=== PATIENT | female | born 1965 | race Caucasian/White ===

== ENCOUNTER → 2020-02-01 | Outpatient (CLI) | payer BC ==
--- NOTE | 2020-02-01 14:35 | RADIOLOGY REPORT (SQ) ---
EXAM DESCRIPTION: NM WHOLE BODY BONE SCAN IMAGES COMPLETED DATE/TIME: 02/01/2020 2:01 pm REASON FOR STUDY: BREAST CA WITH METS (C50.919, C79.51) C79.51 SECONDARY MALIGNANT NEOPLASM OF BONE C50.919 MALIGNANT NEOPLASM OF UNSP SITE OF UNSPECIFIED FEMAL COMPARISON: No available imaging studies for comparison. RADIONUCLIDE AND DOSE: 20.8 millicuries Tc99m HDP. The route of agent administration: Intravenous. ADDITIONAL DRUGS AND DOSES: None. TECHNIQUE: Routine delayed images at 3 hour post radionuclide injection acquired of the bony skeleto n including anterior and posterior whole-body projections and additional focused images as needed. LIMITATIONS: None. FINDINGS: BONES: Increased uptake corresponding to the T10 vertebral body. Additional uptake corres ponding to the L3 and likely L4 vertebral bodies. Small focus of uptake corresponding to the likely right occipital calvarium. Scattered additional uptake at the shoulders, knees and hips in a pattern most consistent with degenerative change. KIDNEYS: Symmetric excretion without obstruction. OTHER: No other significant finding. IMPRESSION: Abnormal uptake corresponding to the T10, L3 and likely L4 vertebral bodies. Additional uptake corresponding to the right likely occipital calvarium. Findings suspicious for additional me tastatic deposits. Traumatic injury to the spine is not entirely excluded. Correlation with thoraci c and lumbar MR could be considered for confirmation. RECOMMENDATION: Thoracic and lumbar MRI could be considered for further evaluation. COMMENT: Quality measure 147: No available prior imaging studies for comparison TECHNICAL DOCUMENTATION: JOB ID: [id number] 2010 [employer]- All Rights Reserved Reading location - IP/workstation name: [email or web address]
== END ==
LOC: RAD 09:54
PROVIDERS: ATTEND Internal Medicine Medical Oncology
DX: C79.51 Secondary malignant neoplasm of bone (principal); C50.919 Malignant neoplasm of unspecified site of unspecified female breast
CPT/HCPCS: 78306; A9561; Q9969

== ENCOUNTER → 2020-07-18 | Outpatient (CLI) | payer BC ==
--- NOTE | 2020-07-18 11:15 | RADIOLOGY REPORT (SQ) ---
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 TECHNIQUE: CT scan of the chest performed using helical scanning technique with dynamic intravenous contrast injection. Images reviewed with lung, soft tissue and bone windows. Reconstructed coronal and sagittal MPR and MIP images reviewed. All images stored on PACS. All CT scanners at this facility use dose modulation, iterative reconstruction, and/or weight based d osing when appropriate to reduce radiation dose to as low as reasonably achievable (ALARA). [facility]: Dose Right [facility]: CareDose [facility]: Dose Right [facility]: Teradose 4D [facility]: [employer] CONTRAST TYPE AND DOSE: contrast/concentration: Isovue 350.00 mmol/ml; Total Contrast Delivered: 80. 0 ml; Total Saline Delivered: 40.0 ml RENAL FUNCTION: Creatinine 1 RADIATION DOSE: . LIMITATIONS: None. FINDINGS: LUNGS AND PLEURA: Extending from the upper lobe into the lingula. There are some air bron chograms. This extends from the hilum. Elevated left hemidiaphragm. Moderate left pleural effusion . There is an 8 mm subpleural nodule in the left lower lobe. HILAR AND MEDIASTINAL STRUCTURES: Cannot exclude an 18 mm left hilar mass. HEART AND VASCULAR STRUCTURES: No aneurysm or dissection. No central pulmonary emboli. No pericardi al effusion. HARDWARE: None in the chest. UPPER ABDOMEN: See separate report of the CT of the abdomen. THYROID AND OTHER SOFT TISSUES: No masses. No adenopathy. BONES: There is marked sclerosis in the T9 vertebral body, sparing a portion of the right side of the vertebral body. OTHER: No other significant finding. IMPRESSION: 1. Airspace disease in the left upper lobe and lingula, atelectasis versus pneumonia. 2. Cannot exclude 18 mm left hilar mass as the cause for 1 above. 3. 8 mm subpleural nodule in the left lower lobe. 4. Left pleural effusion. Elevation the left hemidiaphragm. 5. Marked sclerosis at T9 vertebral body. Cannot exclude metastatic disease to bone. TECHNICAL DOCUMENTATION: JOB ID: [id number] Quality ID # [id number]: Final reports with documentation of one or more dose reduction techniques (e.g., Au tomated exposure control, adjustment of the mA and/or kV according to patient size, use of iterative reconstruction technique) 2010 [employer]- All Rights Reserved Reading location - IP/workstation name: [email or web address]
--- NOTE | 2020-07-18 11:21 | RADIOLOGY REPORT (SQ) ---
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 TECHNIQUE: CT scan of the abdomen and pelvis performed using helical scanning technique with dynamic intravenous contrast injection. No oral contrast. Images reviewed with lung, soft tissue, and bone windows. Reconstructed coronal and sagittal MPR images reviewed. Delayed images for evaluation of the urinary system also acquired. All images stored on PACS. All CT scanners at this facility use dose modulation, iterative reconstruction, and/or weight based d osing when appropriate to reduce radiation dose to as low as reasonably achievable (ALARA). [facility]: Dose Right [facility]: CareDose [facility]: Dose Right [facility]: Teradose 4D [facility]: [employer] CONTRAST TYPE AND DOSE: 80 mL Omnipaque 350- low osmolar. RENAL FUNCTION: Creatinine 1 RADIATION DOSE: CT Rad equipment meets quality standard of care and radiation dose reduction techniq ues were employed. CTDIvol: 5.8 - 9.4 mGy. DLP: 1198 mGy-cm.. LIMITATIONS: None. FINDINGS: LOWER CHEST: See separate report of the CT of the chest. LIVER: Normal size. No masses. No dilated ducts. SPLEEN: Normal size. No focal lesions. PANCREAS: No masses. No significant calcifications. No adjacent inflammation or peripancreatic fluid collections. Pancreatic duct not dilated. GALLBLADDER: Surgically absent. ADRENAL GLANDS: No significant masses or asymmetry. RIGHT KIDNEY AND URETER: No solid masses. No significant calcifications. No hydronephrosis or hyd roureter. LEFT KIDNEY AND URETER: No solid masses. No significant calcifications. No hydronephrosis or hydr oureter. AORTA AND VESSELS: No aneurysm. No dissection. Renal arteries, SMA, celiac without stenosis. RETROPERITONEUM: No retroperitoneal adenopathy, hemorrhage or masses. BOWEL AND PERITONEAL CAVITY: Sigmoid diverticulosis with no associated inflammation. No obvious stephanie l mass. APPENDIX: Not identified. PELVIS: No mass. No free fluid. Normal bladder. ABDOMINAL WALL: No masses. No hernias. BONES: Sclerotic lesions seen at T10, L1, L2, L3, and L4. Lesions are present at S1 and in each ileu m and in the right sacrum. OTHER: No other significant finding. IMPRESSION: 1. Osseous metastases. 2. Mild diverticulosis coli. TECHNICAL DOCUMENTATION: JOB ID: [id number] Quality ID # [id number]: Final reports with documentation of one or more dose reduction techniques (e.g., Au tomated exposure control, adjustment of the mA and/or kV according to patient size, use of iterative reconstruction technique) 2010 [employer]- All Rights Reserved Reading location - IP/workstation name: [email or web address]
--- NOTE | 2020-07-18 15:21 | RADIOLOGY REPORT (SQ) ---
EXAM DESCRIPTION: NM WHOLE BODY BONE SCAN IMAGES COMPLETED DATE/TIME: 07/18/2020 2:42 pm REASON FOR STUDY: C79.51 SECONDARY MALIGNANT NEOPLASM OF BONE C50.812 MALIGNANT NEOPLASM OF OVRLP S ITES OF LEFT FEMALE DAI C79.51 SECONDARY MALIGNANT NEOPLASM OF BONE COMPARISON: 02/01/2020 RADIONUCLIDE AND DOSE: 20 millicuries Tc99m MDP. The route of agent administration: Intravenous. ADDITIONAL DRUGS AND DOSES: None. TECHNIQUE: Routine delayed images at 3 hours post radionuclide injection acquired of the bony skelet on including anterior and posterior whole-body projections and additional focused images as needed. LIMITATIONS: None. FINDINGS: BONES: Once again there is small area of focal uptake in the calvarium. There is uptake i n the spine that appears to be unchanged. No new areas of abnormal uptake are appreciated. KIDNEYS: Symmetric excretion without obstruction. OTHER: No other significant finding. IMPRESSION: The appearance suggests stable metastatic disease to bone. COMMENT: Quality measure 147: Current bone scan is compared with any available plain radiographs, p rior bone scans, and CT/MRI. TECHNICAL DOCUMENTATION: JOB ID: [id number] 2010 [employer]- All Rights Reserved Reading location - IP/workstation name: [email or web address]
== END ==
LOC: RAD 10:00
PROVIDERS: ATTEND Internal Medicine Hematology & Oncology
DX: C50.812 Malignant neoplasm of overlapping sites of left female breast (principal); C79.51 Secondary malignant neoplasm of bone; K57.30 Diverticulosis of large intestine without perforation or abscess without bleeding; J90 Pleural effusion, not elsewhere classified; R91.1 Solitary pulmonary nodule
CPT/HCPCS: 82565; 78306; 71260; 74177; A9503; Q9969

== ENCOUNTER → 2020-09-02 | Outpatient (CLI) | payer BC | LOC: OD 12:36 | PROVIDERS: ATTEND Radiology Radiation Oncology | DX: C50.812 Malignant neoplasm of overlapping sites of left female breast (principal) | CPT/HCPCS: 36415; 84702; 84703 ==